=== PATIENT | female | born 1970 | race American Indian/Alaskan Native ===

== ENCOUNTER 2019-03-24 08:48 | Outpatient (CLI) | payer MEDICAID ==
--- NOTE | 2019-03-25 08:13 | Mammography Report ---
DIGITAL SCREENING MAMMOGRAM WITH CAD, 03/24/2019 INDICATION: Routine screening mammography. TECHNIQUE: Digital bilateral 2D mammography was obtained in the craniocaudal and mediolateral obliq ue projections. This examination was interpreted with the benefit of Computer-Aided Detection analysi s. COMPARISON: Outside analog images 02/10/2008 FINDINGS: Breast Density: The breasts are heterogeneously dense, which may obscure small masses. There is no evidence of dominant mass, suspicious calcifications or architectural distortion in the r ight breast. In the far posterior left breast at 12:00, 2 adjacent small groups of microcalcification s are seen which were not obvious previously. IMPRESSION: Grouped microcalcifications on the left. Recommend magnification views. BI-RADS Category 0: Incomplete. Needs additional imaging evaluation and/or prior mammograms for kaden rison. A "normal" or negative report should not discourage follow up or biopsy of a clinically significant f inding. A written summary of these findings will be mailed to the patient. The patient will be entered into a mammography reporting system which will generate a reminder letter for the patient's next appointmen t at the appropriate interval. The [employer] recommends yearly mammograms starting at age 40 and continuing as l morales as a woman is in good health. Breast MRI is recommended for women with an approximate 20-25% or greater lifetime risk of breast cancer, including women with a strong family history of breast or ova sidra cancer or who have been treated for Hodgkin's disease. Signer Name: Luis Manuel Diez MD Signed: 03/25/2019 8:08 AM Workstation Name: [id number]
== END 2019-03-24 08:49 | disposition home or self-care (01) ==
LOC: MAMMO 08:48
PROVIDERS: ATTEND Internal Medicine
DX: Z12.31 Encounter for screening mammogram for malignant neoplasm of breast (principal)
CPT/HCPCS: 77067

== ENCOUNTER 2019-04-08 08:42 | Outpatient (CLI) | payer MEDICAID ==
--- NOTE | 2019-04-08 09:36 | Mammography Report ---
LEFT DIGITAL DIAGNOSTIC MAMMOGRAM INDICATION: Recall for calcifications. TECHNIQUE: Digital left mammographic imaging was performed. Magnification views were obtained. COMPARISON: 03/24/2019. We have also obtained a 2007 mammogram from [facility]. FINDINGS: Breast Density: The breast is heterogeneously dense, which may obscure small masses. Upper outer posterior clustered benign clustered rounded calcifications are new compared to the previ ous mammogram. No associated mass or architectural distortion. IMPRESSION: Probably benign calcifications. Recommend 6 month follow-up left mammogram with magnifica tion views of calcifications. BI-RADS Category 3: Probably Benign. A "normal" or negative report should not discourage follow up or biopsy of a clinically significant f inding. A written summary of these findings will be mailed to the patient. The patient will be entered into a mammography reporting system which will generate a reminder letter for the patient's next appointmen t at the appropriate interval. FURTHER INFORMATION: According to the [employer], yearly mammograms are recommend ed starting at age 40 and continuing as long as a woman is in good health. Breast MRI is recommended for women with an approximately 20-25% or greater lifetime risk of breast cancer, including women wi th a strong family history of breast or ovarian cancer and women who have been treated for Hodgkin's disease. Signer Name: Percy Love MD Signed: 04/08/2019 9:31 AM Workstation Name: [id number]
== END 2019-04-08 08:43 | disposition home or self-care (01) ==
LOC: MAMMO 08:42
PROVIDERS: ATTEND Internal Medicine
DX: R92.2 Inconclusive mammogram (principal)